=== PATIENT | male | born 1970 | race Caucasian/White ===

== ENCOUNTER → 2019-05-14 16:16 | Outpatient (CLI) | payer BC, SELFPAY ==
--- NOTE | 2019-05-14 16:24 | XR_ITS ---
PROCEDURE: XR FOOT RT MIN 3V CLINICAL INDICATION: Pain, swelling COMPARISON: No exams were available for comparison FINDINGS: Bone density, joint spaces and alignment are normal. There is a 4 millimeter plantar calcaneal spur. There is no acute fracture. There is some prominence and increased density of the soft tissues medial to the proximal tarsal area and anterior to the tibiotalar joint. There is no radiopaque soft tissue foreign body. IMPRESSION: Medial and anterior possible soft tissue edema. No acute fracture. Dictated by: Jens Humphreys 05/14/2019 16:51 Electronically signed by Jens Humphreys in [place] 05/14/2019 16:51
== END ==
PROVIDERS: PCP Physician Assistant; Visit Provider Physician Assistant
DX: M79.671 Pain in right foot (principal)
CPT/HCPCS: 73630

== ENCOUNTER → 2019-05-22 18:04 | Outpatient (CLI) | payer BC, SELFPAY ==
[2019-05-22 19:29] LABS: Alanine Aminotransferase 23 U/L (12-78); Albumin/Globulin Ratio 1.3 (1.1-1.8); Alkaline Phosphatase 80 U/L (46-116); Anion Gap 11.4 mEq/L (5-15); Aspartate Amino Transferase 12 U/L (15-37); Bilirubin,Total 0.6 mg/dL (0.2-1.0); Blood Urea Nitrogen 12 mg/dL (7-18); Calcium 8.8 mg/dL (8.5-10.1); Carbon Dioxide 30 mmol/L (21.0-32.0); Chloride 101 mmol/L (98-107); Chol/HDL Ratio 3.6 (1-3.5); Cholesterol 160 mg/dL (140-200); Creatinine,Serum 0.91 mg/dL (0.70-1.30); Estimated Glomerular Filt Rate 89 ml/min (>60); GFR (African American) 107 ML/MIN (>60); Globulin 3.2 gm/dl (1.3-3.2); Glucose 60 mg/dL (74-106); HDL Cholesterol 44 mg/dL (27-67); LDL Cholesterol 96 mg/dL (0-130); Potassium 4.4 mmoL/L (3.5-5.1); Sodium 138 mmol/L (136-145); Thyroid Stimulating Hormone 1.66 uIU/ml (0.358-3.740); Total Protein,Serum 7.2 gm/dL (6.4-8.2); Triglycerides 102 mg/dL (30-200); Uric Acid 5.7 mg/dL (2.6-7.2); VLDL Cholesterol 20 mg/dL (0-40)
[2019-05-22 19:45] LABS: Basophils # 0.1 K/mm3 (0-0.2); Basophils % 0.8 % (0.1-2.0); Eosinophils # 0.2 K/mm3 (0.0-0.4); Eosinophils % 2.7 % (0.1-12.0); Hematocrit 44.9 % (42.0-52.0); Hemoglobin 13.9 g/dL (14.1-18.0); Lymphocytes # 2.4 K/mm3 (0.7-4.5); Lymphocytes % 35.1 % (10-50); Mean Corpuscular HGB Conc 30.9 g/dL (31.8-35.4); Mean Corpuscular Hemoglobin 27.9 pg (27.0-31.2); Mean Corpuscular Volume 90.3 fl (80-94); Mean Platelet Volume 8.8 fl (7.4-10.4); Monocytes # 0.6 K/mm3 (0.1-1.0); Monocytes % 8.5 % (1.7-9.3); Neutrophils # 3.6 K/mm3 (1.8-7.8); Neutrophils % 52.9 % (37.0-80.0); Platelet Count 354 K/mm3 (142-424); Red Blood Count 4.97 M/mm3 (4.60-6.20); Red Cell Distribution Width 14.8 % (11.5-17.5); White Blood Count 6.8 K/mm3 (4.8-10.8)
[2019-05-24 17:04] LABS: Vitamin D 25 Hydroxy 29.1 ng/mL (30.0-100.0)
== END ==
PROVIDERS: Visit Provider Nurse Practitioner Family
DX: M25.50 Pain in unspecified joint (principal); E66.9 Obesity, unspecified; R53.83 Other fatigue; M25.471 Effusion, right ankle
CPT/HCPCS: 80053; 80061; 82652; 84436; 84443; 84550; 85025

== ENCOUNTER 2022-08-02 09:16 | Day surgery (SDC) | payer BC, SELFPAY ==
[2022-08-01 09:19] VITALS: BMI 41.1
[2022-08-02 09:32] VITALS: BP 144/88; PULSE 74; RESP 16; TEMP 36.1; O2SAT 97
[2022-08-02 10:10] VITALS: O2SAT 95
--- NOTE | 2022-08-02 10:10 | EXP.ANES.CKL ---
[facility] Disclaimer: The information contained in this section may have been updated after the patient was seen, as this information can be updated by other users. Medical History Asthma Seizure disorder Surgical History History of surgical removal of ganglion cyst Family History Other Family history of cancer Social History Smoking Status: Former smoker alcohol intake: current substance use type: denies use current occupational status: employed Travel in the last 8 weeks: None housing: house [facility] Anesthesia Checklist Patient Identification Patient Identification: Arm Band Structural Data Admitted From: Home Planned Operative Procedure/s: Colonoscopy Consent for Planned Operative Procedure(s) Verified: Yes Verified Documents: Surgical Consent and History and Physical NPO Status Verified Time NPO: 00:00 Additional verifications Anesthesia Reactions: No Airway Assessment C-Spine Mobility Assessed: Yes TMJ Mobility Assessed: Yes Dentition: Good Dentition Neurological Assessment Level of Consciousness: Awake and Alert Anesthesia Plan Anesthesia Plan: Verified ASA Class: III Anesthesia Type: MAC
--- NOTE | 2022-08-02 10:11 | P.PCN_ITS ---
Procedure: Date: 08/02/22 Patient Date of :: 1970 Procedure Performed:: Colonoscopy Indications:: Screening Performing Provider:: Quinn Haas MD Referring Provider:: . Sedation:: Monitored anesthesia care Procedure:: After informed consent was obtained the patient was taken to the endoscopy suite. Sedation ensued after the patient was transferred to the left lateral decubitus position. Pulse, blood pressure, and oxygen saturation were monitored throughout the procedure. Digital rectal exam revealed no significant abnormality. The colonoscope was placed in position. The entire colon was eval uated. The colonoscope was carefully removed and the patient was transferred to recovery in stable condition. Please see findings and specimens below for detail. Findings:: Circumferential hemorrhoids Bowel preparation poor Specimens:: None Recommendations:: Repeat colonoscopy in approximately 1 year with extended bowel preparation Complications:: No immediate (with the exception of poor bowel preparation limiting visualization) Estimated blood obtained (mL): 0
[2022-08-02 10:45] VITALS: BP 115/70; PULSE 82; RESP 16; TEMP 36.6; O2SAT 91
[2022-08-02 10:55] VITALS: BP 107/72; PULSE 74; RESP 17; O2SAT 92
[2022-08-02 11:05] VITALS: BP 111/73; PULSE 79; RESP 18; O2SAT 95
[2022-08-02 11:15] VITALS: BP 112/79; PULSE 78; RESP 16; TEMP 36.6; O2SAT 99
== END 2022-08-02 11:20 | disposition home or self-care (01) ==
PROVIDERS: PCP Family Medicine; Visit Provider Surgery
PROC: 0DJD8ZZ Inspection of Lower Intestinal Tract, Via Natural or Artificial Opening Endoscopic (ICD-10-PCS; CPT 45378; principal; 2022-08-02 10:30)
DX: Z12.11 Encounter for screening for malignant neoplasm of colon (principal); Z91.199 Patient's noncompliance with other medical treatment and regimen due to unspecified reason; K64.9 Unspecified hemorrhoids; Z79.899 Other long term (current) drug therapy
CPT/HCPCS: 45378; J2704

== ENCOUNTER 2024-11-01 12:02 | Outpatient (CLI) | payer BC, SELFPAY ==
[2024-11-01 18:08] LABS: Basophils # 0.1 K/mm3 (0-0.2); Eosinophils # 0.2 K/mm3 (0.0-0.4); Eosinophils % 3.1 % (0.1-12.0); Hematocrit 42.4 % (42.0-52.0); Hemoglobin 13.8 g/dL (14.1-18.0); Lymphocytes # 1.5 K/mm3 (0.7-4.5); Lymphocytes % 29.5 % (10-50); Mean Corpuscular HGB Conc 32.5 g/dL (31.8-35.4); Mean Corpuscular Hemoglobin 29.1 pg (27.0-31.2); Mean Corpuscular Volume 89.5 fl (80-94); Monocytes # 0.5 K/mm3 (0.1-1.0); Monocytes % 9.8 % (1.7-9.3); Neutrophils # 2.9 K/mm3 (1.8-7.8); Neutrophils % 56.4 % (37.0-80.0); Platelet Count 317 K/mm3 (142-424); Red Blood Count 4.74 M/mm3 (4.60-6.20); Red Cell Distribution Width 13.9 % (11.5-17.5); White Blood Count 5.2 K/mm3 (4.8-10.8)
[2024-11-01 18:33] LABS: Alanine Aminotransferase 24 U/L (12-78); Albumin Level 4.4 g/dl (3.5-5.0); Albumin/Globulin Ratio 1.8 (1.1-1.8); Alkaline Phosphatase 62 U/L (38-126); Anion Gap 7.8 mEq/L (5-15); Aspartate Amino Transferase 24 U/L (17-59); Bilirubin,Total 0.9 mg/dl (0.2-1.3); Blood Urea Nitrogen 14 mg/dl (9-20); Calcium 9.4 mg/dl (8.4-10.2); Carbon Dioxide 30 mmol/L (22.0-30.0); Chloride 104 mmol/L (98-107); Chol/HDL Ratio 3.8 (1-3.5); Cholesterol 173 mg/dl (140-200); Estimated Glomerular Filt Rate 88 ml/min (>60); GFR (African American) 106 ML/MIN (>60); Globulin 2.5 g/dL (1.3-3.2); Glucose 76 mg/dl (74-100); HDL Cholesterol 46 mg/dl (40-60); Potassium 4.8 mmoL/L (3.5-5.1); Sodium 137 mmol/L (136-145); Total Protein,Serum 6.9 g/dl (6.3-8.2); Triglycerides 86 mg/dl (30-150); VLDL Cholesterol 17 mg/dL (0-40)
[2024-11-01 18:44] LABS: Direct LDL Cholesterol 97.02 mg/dL (100-129)
[2024-11-01 18:52] LABS: 25-OH Vitamin D, Total 23.1 ng/mL (30-100)
[2024-11-01 19:01] LABS: Prostate Specific Ag Screen 0.3 ng/ml (0.0-4.0)
[2024-11-01 19:10] LABS: HIV Combo NEGATIVE (Negative)
[2024-11-01 19:23] LABS: Hepatitis C Ab Qual. W/ RFX NEGATIVE (Negative)
== END 2024-11-01 23:59 | disposition home or self-care (01) ==
LOC: LAB.DROPOF 11-04 10:48
PROVIDERS: PCP Family Medicine; Visit Provider Family Medicine
DX: D64.9 Anemia, unspecified (principal); R03.0 Elevated blood-pressure reading, without diagnosis of hypertension; Z11.59 Encounter for screening for other viral diseases; E50.9 Vitamin A deficiency, unspecified
CPT/HCPCS: 80053; 80061; 82306; 85025; 86803; 87389; G0103

== ENCOUNTER 2025-03-19 09:54 | Day surgery (SDC) | payer BC, SELFPAY ==
[2025-03-12 13:19] VITALS: BMI 42.7
--- NOTE | 2025-03-19 10:41 | EXP.HP ---
History of Present Illness *Admission Date: 03/19/25 *History of present illness: Mr. Perdue is a 54-year-old gentleman who is here for screening colonoscopy. The examination is deemed medically necessary for screening colonoscopy. The patient has been seen, interviewed and examined prior to the procedure by both myself and the anesthesia provider. [facility] Disclaimer: The information contained in this section may have been updated after the patient was seen, as this information can be updated by other users. Medical History Screening for prostate cancer Screening for colon cancer Vitamin D deficiency Anemia Elevated BP without diagnosis of hypertension Ceruminosis Diastasis recti Tinea pedis Seizure disorder Asthma Surgical History History of surgical removal of ganglion cyst Family History Mother Diabetes Liver cancer Other Family history of cancer Social History (Updated 03/19/25 @ 11:01 by Juana Harp RN) Smoking Status: Former smoker tobacco type: smokeless tobacco alcohol intake: current alcohol intake frequency: holidays/special occasions only substance use type: denies use current occupational status: employed Travel in the last 8 weeks?: None housing: house caffeine: Yes Have you lived/traveled outside [place] in past 30 days?: No Contact w/someone who lives/traveled outside [place] past 30 days?: No Exposure to someone with infectious disease in past 14 days?: No Do you have a fever (greater than 100.4 F or 38 C)?: No Have you tested positive for COVID-19?: No Exposed to someone with COVID-19 in past 14 days?: No Do you have a sore throat?: No Do you have a cough?: No Do you have any weakness?: No Are you experiencing any nausea/vomitting?: No Do you have any diarrhea?: No Are you experiencing any unusual bleeding?: No Do you have any muscle aches/pain?: No Do you have any abdominal pain?: No Are you experiencing loss of taste or smell?: No Other Medical History Have you received the Pneumonia Vaccine: No Review of Systems Review of Systems Review of systems (narrative): Negative *Cardiovascular Comments: Negative *Gastrointestinal Comments: Negative *Genitourinary Comments: Negative *Musculoskeletal Comments: Negative *Neurologic Comments: Negative Meds Home Medications and Allergies Home Medications ?Medication ?Instructions ?Recorded ?Confirmed ?Type omeprazole 40 mg capsule,delayed 40 mg PO DAILY GERD 06/14/22 03/19/25 History release terbinafine HCl 1 % topical cream 1 applic topical BID #30 grams 11/01/24 03/19/25 Rx (Athlete's Foot (terbinafine)) sodium,potassium,mag sulfates 17.5 See Rx Instructions PO .COMPLEX 03/06/25 03/19/25 Rx gram-3.13 gram-1.6 gram oral soln #354 mL (Suprep Bowel Prep Kit) New Prescriptions to Start Prescriptions: Allergies Allergy/AdvReac Type Severity Reaction Status Date / Time bee venom protein (honey bee) Allergy Severe Anaphylaxis Verified 03/19/25 11:11 Exam *Routine HEENT Exam Head: Present normocephalic Eye: Present EOMI and PERRL ENT: Present mucous membranes moist *Routine Neck Exam Neck: Present supple *Routine Respiratory Exam Respiratory: Present CTA bilaterally *Routine Cardiovascular Exam Cardiovascular: Present RRR *Routine Abdominal Exam Abdominal: Present soft and normoactive bowel sounds; Absent tenderness *Routine Rectal Exam Rectal:: deferred *Routine Genitalia Exam Genitalia:: deferred *Routine Extremities Exam Extremities: Absent cyanosis, clubbing or edema *Routine Skin Exam Skin: Present warm; Absent rash *Routine Neurological Exam Neurological: Present alert and oriented X3 Assessment and Plan *Assessment and plan (1) Screening for colon cancer: Status: Acute Category: Medical Code(s): Z12.11 - Encounter for screening for malignant neoplasm of colon Plan A/P: 1. Screening for colon cancer is the preprocedural diagnosis. The patient will be anesthetized/sedated using MAC sedation. The patient has been seen and examined. Cardiac and lung assessment prior to the examination is stable. Proceed with planned screening colonoscopy.
[2025-03-19 10:59] VITALS: BP 157/87; PULSE 66; RESP 18; TEMP 36.4; O2SAT 98; BMI 42.7
[2025-03-19] MEDS: LACTATED RINGERS 1000ML 1,000 ML 25 ML IV (11:16)
--- NOTE | 2025-03-19 11:23 | EXP.ANES.CKL ---
[facility] Disclaimer: The information contained in this section may have been updated after the patient was seen, as this information can be updated by other users. Medical History Screening for prostate cancer Screening for colon cancer Vitamin D deficiency Anemia Elevated BP without diagnosis of hypertension Ceruminosis Diastasis recti Tinea pedis Seizure disorder Asthma Surgical History History of surgical removal of ganglion cyst Family History Mother Diabetes Liver cancer Other Family history of cancer Social History (Updated 03/19/25 @ 11:01 by Juana Harp RN) Smoking Status: Former smoker tobacco type: smokeless tobacco alcohol intake: current alcohol intake frequency: holidays/special occasions only substance use type: denies use current occupational status: employed Travel in the last 8 weeks?: None housing: house caffeine: Yes Have you lived/traveled outside [place] in past 30 days?: No Contact w/someone who lives/traveled outside [place] past 30 days?: No Exposure to someone with infectious disease in past 14 days?: No Do you have a fever (greater than 100.4 F or 38 C)?: No Have you tested positive for COVID-19?: No Exposed to someone with COVID-19 in past 14 days?: No Do you have a sore throat?: No Do you have a cough?: No Do you have any weakness?: No Are you experiencing any nausea/vomitting?: No Do you have any diarrhea?: No Are you experiencing any unusual bleeding?: No Do you have any muscle aches/pain?: No Do you have any abdominal pain?: No Are you experiencing loss of taste or smell?: No [facility] Anesthesia Checklist Patient Identification Patient Identification: Arm Band Structural Data Admitted From: Home Planned Operative Procedure/s: Colonoscopy Consent for Planned Operative Procedure(s) Verified: Yes Verified Documents: Surgical Consent and History and Physical NPO Status Verified Time NPO: 06:00 (finished prep) Additional verifications Anesthesia Reactions: No Airway Assessment Mallampati Score:: Class II C-Spine Mobility Assessed: Yes TMJ Mobility Assessed: Yes Dentition: Good Dentition Neurological Assessment Level of Consciousness: Awake, Alert and Appropriate Anesthesia Plan Anesthesia Risk discussed: Yes Anesthesia Plan: Verified ASA Class: III Anesthesia Type: MAC
--- NOTE | 2025-03-19 11:43 | HMH.PROCNOTE ---
[facility] Procedure Note Date: 03/19/25 Time: 12:00 Procedure Note:: Colonoscopy Procedure Report: Colonoscopy with cold snare polypectomy Endoscopist: Gerald Renteria II, MD Referring physician: Rick Huertas MD Date of Procedure: March 19, 2025 Equipment: Olympus [id number] adult colonoscope Sedation: MAC sedation Indication: Mr. Perdue is a 54-year-old gentleman who is here for screening colonoscopy. He did have an attempted colonoscopy in July 2022 (Quinn Haas M.D.) and the findings were primarily poor bowel preparation and a repeat colonoscopy was recommended in 1 year with extended bowel preparation. The patient reports no abdominal pain, weight loss, change in his bowel habits or rectal bleeding. He reports no family history of colon cancer. Procedure: Prior to the procedure, a history and physical exam was performed, and patient's medications and allergies were reviewed. The risks, benefits and alternatives of the sedation and procedure were discussed with the patient. All questions were answered and informed consent was obtained. The patient was brought to the procedure room. Patient identification and proposed procedure were verified by the physician and the nurse. The patient was placed in a left lateral decubitus position and the scope was passed under direct vision. Throughout the procedure, the patient's blood pressure, pulse, and oxygen saturations were monitored continuously. The colonoscopy was accomplished without difficulty. The patient tolerated the procedure well. Findings: On digital rectal examination there was normal rectal tone. There were no external hemorrhoids. The colonoscope was introduced through the anal canal to the rectum and advanced to the cecum. The ileocecal valve and appendiceal orifice were identified. The scope was advanced a short distance into the ileum which appeared grossly normal. The scope was then withdrawn into the colon. The cecum, ascending, transverse and descending colon were grossly normal. There was a single 4 mm hyperplastic appearing polyp in the sigmoid colon that was removed via cold snare polypectomy. There are a few diverticuli identified in the sigmoid colon. Upon retroflexion within the rectum there were grade 1-2 internal hemorrhoids. The preparation was fair throughout with [place] Preparation Score of 7 out of 9. The cecal time was 12 minutes. Impression: 1. Diminutive hyperplastic appearing sigmoid polyp 2. Mild sigmoid diverticulosis 3. Grade 1-2 internal hemorrhoids Plan: I will follow-up the polyp histology and if the polyp is hyperplastic, he will not require surveillance colonoscopy again for 10 years. I would encourage psyllium bulking fiber supplementation on a maintenance basis.
[2025-03-19 12:02] VITALS: BP 109/71; PULSE 63; RESP 16; TEMP 36.4; O2SAT 97
[2025-03-19 12:12] VITALS: BP 112/72; PULSE 66; RESP 16; O2SAT 96
[2025-03-19 12:22] VITALS: BP 116/80; PULSE 65; RESP 16; O2SAT 95
[2025-03-19 12:32] VITALS: BP 117/82; PULSE 66; RESP 16; O2SAT 95
== END 2025-03-19 12:40 | disposition home or self-care (01) ==
PROVIDERS: PCP Family Medicine; Visit Provider Internal Medicine Gastroenterology
PROC: 0DJD8ZZ Inspection of Lower Intestinal Tract, Via Natural or Artificial Opening Endoscopic (ICD-10-PCS; CPT 45378; principal; 2025-03-19 11:30)
DX: Z12.11 Encounter for screening for malignant neoplasm of colon (principal); K63.5 Polyp of colon; K57.30 Diverticulosis of large intestine without perforation or abscess without bleeding; K64.0 First degree hemorrhoids; K64.1 Second degree hemorrhoids; J45.909 Unspecified asthma, uncomplicated; G40.909 Epilepsy, unspecified, not intractable, without status epilepticus; Z87.891 Personal history of nicotine dependence; Z79.899 Other long term (current) drug therapy
CPT/HCPCS: 45385; J2003; J2704; J7120